=== PATIENT | female | born 1990 | race Two or more races ===

== ENCOUNTER 2020-08-12 09:27 | Emergency (ER) | payer MEDICAID ==
[~2020-08-12] VITALS: Ht 170.2 cm; Wt 94.8 kg
[2020-08-12] MEDS ORDERED: SODIUM CHLORIDE 0.9% 1,000 ML IVB ONE (10:00)
[2020-08-12 10:26] LABS: Basophils # (auto) 0 10 ^3/uL (0-0.2); Basophils % (auto) 0.7 % (0.0-2.0); Eosinophils # (auto) 0.1 10 ^3/uL (0-0.8); Eosinophils % (auto) 1.3 % (0.0-7.0); Hemoglobin 11.9 g/dL (12.2-16.2); Lymphocytes # (auto) 1.3 10 ^3/uL (0.4-5.4); Lymphocytes % (auto) 30.7 % (10.0-50.0); Mean Corpuscular Hemoglobin 29.1 pg (28.0-32.0); Mean Corpuscular Volume 85.7 fL (80.0-100.0); Monocytes # (auto) 0.3 10 ^3/uL (0-1.3); Monocytes % (auto) 5.8 % (0.0-12.0); Neutrophils # (auto) 2.7 10 ^3/uL (1.6-8.6); Neutrophils % (auto) 61.5 % (37.0-80.0); Nucleated Red Blood Cells % 0.1 %; Platelet Count (auto) 133 10^3/uL (140-450); Red Blood Cells 4.08 10^6/uL (4.0-5.20); Red Cell Distribution Width 14.5 % (11.8-14.3); White Blood Cell 4.3 10^3/uL (4.4-10.8)
[2020-08-12 10:59] LABS: Albumin 3.7 g/dL (3.4-5.0); Calcium 8.8 mg/dL (8.5-10.1); Potassium 3.9 mmol/L (3.5-5.1)
[2020-08-12 11:02] LABS: BUN/Creatinine Ratio 14.8; Bilirubin, Total 0.5 mg/dL (0.2-1.0); Total Protein 6.8 g/dL (6.4-8.2)
[2020-08-12 11:49] LABS: Urine Bacteria NONE SEEN /hpf (None Seen); Urine Blood Negative /uL (Negative); Urine Specific Gravity 1.018 (1.001-1.035); Urine WBC 17 /hpf (0 - 5)
[2020-08-12 12:12] VITALS: BP 162/74
== END 2020-08-12 12:32 | disposition home or self-care (01) ==
LOC: ER 09:27 → EDBD 09:27 → ER 12:32
DX: N39.0 Urinary tract infection, site not specified (principal); Z90.49 Acquired absence of other specified parts of digestive tract
CPT/HCPCS: 36415; 74176; 80053; 81001; 83690; 85025; 96360; 96361; 99284; J7030

== ENCOUNTER 2020-09-12 20:24 | Emergency (ER) | payer MEDICAID ==
[~2020-09-12] VITALS: Ht 170.2 cm; Wt 93.4 kg
[2020-09-12 21:54] LABS: Hematocrit 37.1 % (36.0-46.0); Hemoglobin 12.5 g/dL (12.2-16.2); Mean Corpuscular Hemoglobin 28.8 pg (28.0-32.0); Mean Corpuscular Hgb Conc. 33.7 g/dL (32.0-36.0); Mean Corpuscular Volume 85.6 fL (80.0-100.0); Red Blood Cells 4.34 10^6/uL (4.0-5.20); White Blood Cell 4.4 10^3/uL (4.4-10.8)
[2020-09-12 21:56] LABS: Urine Bacteria NONE SEEN /hpf (None Seen); Urine Blood Negative /uL (Negative); Urine Specific Gravity 1.003 (1.001-1.035); Urine WBC <1 /hpf (0 - 5)
[2020-09-12 21:58] LABS: Band Neutrophils % (manual) 0
[2020-09-12 22:00] LABS: Basophils % (manual) 0 (0.0-2.0); Blast Cells 0; Metamyelocytes % 0; Myelocytes % 0; Promyelocytes % 0
[2020-09-12 22:14] LABS: Albumin 3.7 g/dL (3.4-5.0); Calcium 8.4 mg/dL (8.5-10.1); Potassium 3.8 mmol/L (3.5-5.1)
[2020-09-12 22:26] VITALS: BP 101/57
[2020-09-12 22:26] LABS: Bilirubin, Total 0.6 mg/dL (0.2-1.0); Total Protein 7.2 g/dL (6.4-8.2)
[2020-09-12 22:41] LABS: Eosinophils % (manual) 3 (0-7); Lymphocytes % (manual) 47 (10.0-50.0); Monocytes % (manual) 12 (0-12); Reactive Lymphocytes 5
[2020-09-12] MEDS ORDERED: traMADol HCL 50 MG TAB PO ONE (23:30)
[2020-09-12] MEDS ORDERED: SODIUM CHLORIDE 0.9% 1,000 ML IV ONE (23:30)
== END 2020-09-13 01:01 | disposition home or self-care (01) ==
LOC: ER 20:24
DX: R10.11 Right upper quadrant pain (principal); Z90.49 Acquired absence of other specified parts of digestive tract
CPT/HCPCS: 36415; 74176; 80053; 81001; 82962; 83690; 84702; 85007; 85027; 96360; 99284; J7030

== ENCOUNTER 2021-07-17 19:26 | Emergency (ER) | payer MEDICAID, OTHER ==
[~2021-07-17] VITALS: Ht 170.2 cm; Wt 100.7 kg
[2021-07-17 20:22] LABS: Basophils # (auto) 0 10 ^3/uL (0-0.2); Basophils % (auto) 0.4 % (0.0-2.0); Eosinophils # (auto) 0 10 ^3/uL (0-0.8); Eosinophils % (auto) 0.4 % (0.0-7.0); Hematocrit 35.1 % (36.0-46.0); Hemoglobin 12.3 g/dL (12.2-16.2); Lymphocytes % (auto) 26.9 % (10.0-50.0); Mean Corpuscular Hemoglobin 29.2 pg (28.0-32.0); Mean Corpuscular Volume 83.3 fL (80.0-100.0); Monocytes # (auto) 0.3 10 ^3/uL (0-1.3); Monocytes % (auto) 4.2 % (0.0-12.0); Neutrophils % (auto) 68.1 % (37.0-80.0); Nucleated Red Blood Cells % 0.1 %; Red Blood Cells 4.21 10^6/uL (4.0-5.20); Red Cell Distribution Width 13.5 % (11.8-14.3); White Blood Cell 7.3 10^3/uL (4.4-10.8)
[2021-07-17 20:35] LABS: Albumin 3.2 g/dL (3.4-5.0); Calcium 8.8 mg/dL (8.5-10.1); Potassium 3.6 mmol/L (3.5-5.1)
[2021-07-17 20:39] LABS: BUN/Creatinine Ratio 12.5; Bilirubin, Total 0.2 mg/dL (0.2-1.0); Total Protein 7.2 g/dL (6.4-8.2)
[2021-07-17 21:02] LABS: Urine Amorphous Crystal MOD /hpf (None Seen); Urine Bacteria FEW /hpf (None Seen); Urine Blood Negative /uL (Negative); Urine Mucus FEW (None Seen); Urine Specific Gravity 1.014 (1.001-1.035); Urine WBC <1 /hpf (0 - 5)
[2021-07-18 01:36] VITALS: BP 110/70
[2021-07-18] MEDS ORDERED: NITR-87 PO (01:57)
== END 2021-07-18 02:39 | disposition home or self-care (01) ==
LOC: ER 19:26
DX: O20.0 Threatened abortion (principal); Z90.49 Acquired absence of other specified parts of digestive tract; Z3A.17 17 weeks gestation of pregnancy
CPT/HCPCS: 36415; 76805; 80053; 81001; 81025; 84702; 85025; 93005

== ENCOUNTER 2021-09-29 21:54 | Observation (INO) | payer MEDICAID ==
[~2021-09-29 21:54] MED LIST: NITR-87 PO
[2021-09-30 02:39] LABS: Urine Amorphous Crystal FEW /hpf (None Seen); Urine Bacteria FEW /hpf (None Seen); Urine Blood Negative /uL (Negative); Urine Mucus FEW (None Seen); Urine Specific Gravity 1.016 (1.001-1.035); Urine WBC 2 /hpf (0 - 5)
[2021-09-30] MEDS ORDERED: LACTATED RINGER'S 1,000 ML IV ONE (04:00)
== END 2021-09-30 02:40 | disposition home or self-care (01) ==
LOC: LDRP 21:54
PROVIDERS: ADMIT Obstetrics & Gynecology; ATTEND Obstetrics & Gynecology
DX: O26.893 Other specified pregnancy related conditions, third trimester (principal); R19.7 Diarrhea, unspecified; R10.9 Unspecified abdominal pain; O99.333 Smoking (tobacco) complicating pregnancy, third trimester; F17.200 Nicotine dependence, unspecified, uncomplicated; Z3A.28 28 weeks gestation of pregnancy
CPT/HCPCS: 59025; 81001; 81002; 94762; 96360; G0378

== ENCOUNTER 2022-07-11 21:15 | Emergency (ER) | payer MEDICAID, OTHER ==
[~2022-07-11] VITALS: Ht 172.7 cm; Wt 116.4 kg
[2022-07-12 00:47] VITALS: BP 112/73
[2022-07-12] MEDS ORDERED: AMOX-277 PO (00:53)
[2022-07-12] MEDS ORDERED: PRED20TA2 PO (00:53)
[2022-07-12] MEDS ORDERED: ACET-1158 PO (00:53)
== END 2022-07-12 01:00 | disposition home or self-care (01) ==
LOC: ER 21:16
DX: J06.9 Acute upper respiratory infection, unspecified (principal); Z20.822 Contact with and (suspected) exposure to COVID-19; Z90.49 Acquired absence of other specified parts of digestive tract
CPT/HCPCS: 36415; 87426; 87804

== ENCOUNTER 2022-07-12 17:26 | Emergency (ER) | payer MEDICAID, OTHER ==
[~2022-07-12] VITALS: Ht 170.2 cm; Wt 114.0 kg
[~2022-07-12 17:26] MED LIST changes: +ACET-1158 PO; +AMOX-277 PO; +PRED20TA2 PO
[2022-07-12 22:03] VITALS: BP 114/76
== END 2022-07-12 22:16 | disposition home or self-care (01) ==
LOC: ER 17:26
DX: S50.02XA Contusion of left elbow, initial encounter (principal); W22.8XXA Striking against or struck by other objects, initial encounter; Y93.89 Activity, other specified; Y92.89 Other specified places as the place of occurrence of the external cause; Y99.8 Other external cause status
CPT/HCPCS: 73080

== ENCOUNTER 2022-08-03 09:28 | Emergency (ER) | payer MEDICAID, OTHER ==
[~2022-08-03] VITALS: Ht 170.2 cm; Wt 117.2 kg
[2022-08-03] MEDS ORDERED: ONDANSETRON ODT 4 MG TAB PO ONE (10:30)
[2022-08-03] MEDS ORDERED: ACETAMINOPHEN 500 MG TAB PO ONE (10:30)
[2022-08-03] MEDS ORDERED: SODIUM CHLORIDE 0.9% 1,000 ML IV ONE (10:30)
[2022-08-03 10:52] LABS: Urine Bacteria NONE SEEN /hpf (None Seen); Urine Blood TRACE /uL (Negative); Urine Mucus FEW (None Seen); Urine Specific Gravity 1.029 (1.001-1.035); Urine WBC 8 /hpf (0 - 5)
[2022-08-03 11:15] LABS: Basophils # (auto) 0 10 ^3/uL (0-0.2); Basophils % (auto) 0.6 % (0.0-2.0); Eosinophils # (auto) 0 10 ^3/uL (0-0.8); Eosinophils % (auto) 0.8 % (0.0-7.0); Hemoglobin 12.8 g/dL (12.2-16.2); Lymphocytes # (auto) 1.8 10 ^3/uL (0.4-5.4); Lymphocytes % (auto) 30.8 % (10.0-50.0); Mean Corpuscular Hemoglobin 27.6 pg (28.0-32.0); Mean Corpuscular Hgb Conc. 32.9 g/dL (32.0-36.0); Mean Corpuscular Volume 83.8 fL (80.0-100.0); Monocytes # (auto) 0.5 10 ^3/uL (0-1.3); Monocytes % (auto) 7.7 % (0.0-12.0); Neutrophils # (auto) 3.6 10 ^3/uL (1.6-8.6); Neutrophils % (auto) 60.1 % (37.0-80.0); Nucleated Red Blood Cells % 0.1 %; Red Blood Cells 4.65 10^6/uL (4.0-5.20); Red Cell Distribution Width 13.4 % (11.8-14.3); White Blood Cell 5.9 10^3/uL (4.4-10.8)
[2022-08-03 11:35] LABS: Albumin 3.4 g/dL (3.4-5.0); Calcium 8.1 mg/dL (8.5-10.1); Potassium 3.6 mmol/L (3.5-5.1)
[2022-08-03 11:39] LABS: BUN/Creatinine Ratio 22.2 (10.0-20.0); Bilirubin, Total 0.5 mg/dL (0.2-1.0); Total Protein 6.7 g/dL (6.4-8.2)
[2022-08-03 11:44] VITALS: BP 132/67
[2022-08-03] MEDS ORDERED: ACET1CAP14 PO (12:00)
[2022-08-03] MEDS ORDERED: ONDA-144 PO (12:00)
[2022-08-03] MEDS ORDERED: CEPH-510 PO (12:00)
[2022-08-03] MEDS ORDERED: LIDOCAINE 1% HCL (LOCAL ANESTH.) INJ 20ML MDV ID ONE (12:15)
[2022-08-03] MEDS ORDERED: cefTRIAXone SOD 1,000 MG VL IM ONE (12:15)
== END 2022-08-03 12:52 | disposition home or self-care (01) ==
LOC: ER 09:28
DX: N39.0 Urinary tract infection, site not specified (principal); A08.4 Viral intestinal infection, unspecified; R10.2 Pelvic and perineal pain; Z79.899 Other long term (current) drug therapy; Z88.6 Allergy status to analgesic agent; Z88.1 Allergy status to other antibiotic agents; Z90.49 Acquired absence of other specified parts of digestive tract
CPT/HCPCS: 36415; 80053; 81001; 83690; 84702; 85025; 96360; 96361; 96372; 99283; J2001; J7030; Q0162; J0696

== ENCOUNTER 2022-11-19 12:51 | Emergency (ER) | payer MEDICAID, OTHER ==
[~2022-11-19] VITALS: Ht 170.2 cm; Wt 116.6 kg
[~2022-11-19 12:51] MED LIST changes: -ACET-1158 PO; +ACET1CAP14 PO; +ACET500T58 PO; -AMOX-277 PO; +AMOX875T4 PO; +CEPH-510 PO; +ONDA-144 PO
[2022-11-19] MEDS ORDERED: PRED20TA2 PO (15:46)
[2022-11-19] MEDS ORDERED: AUG875T PO (15:46)
[2022-11-19 15:48] VITALS: BP 119/85
== END 2022-11-19 16:16 | disposition home or self-care (01) ==
LOC: ER 12:51
DX: H66.92 Otitis media, unspecified, left ear (principal); J03.90 Acute tonsillitis, unspecified; Z90.49 Acquired absence of other specified parts of digestive tract

== ENCOUNTER 2022-12-07 08:05 | Emergency (ER) | payer OTHER ==
[~2022-12-07] VITALS: Ht 172.7 cm; Wt 119.0 kg
[~2022-12-07 08:05] MED LIST changes: +AUG875T PO
[2022-12-07 08:24] VITALS: BP 114/58; PULSE 79; RESP 18; O2SAT 95
[2022-12-07 08:44] LABS: Basophils # (auto) 0 10 ^3/uL (0-0.2); Basophils % (auto) 0.7 % (0.0-2.0); Eosinophils # (auto) 0.2 10 ^3/uL (0-0.8); Eosinophils % (auto) 2.8 % (0.0-7.0); Hematocrit 36.1 % (36.0-46.0); Hemoglobin 11.9 g/dL (12.2-16.2); Lymphocytes # (auto) 1.6 10 ^3/uL (0.4-5.4); Lymphocytes % (auto) 29.8 % (10.0-50.0); Mean Corpuscular Volume 84.9 fL (80.0-100.0); Monocytes # (auto) 0.4 10 ^3/uL (0-1.3); Monocytes % (auto) 7.8 % (0.0-12.0); Neutrophils # (auto) 3.2 10 ^3/uL (1.6-8.6); Neutrophils % (auto) 58.9 % (37.0-80.0); Nucleated Red Blood Cells % 0.1 %; Red Blood Cells 4.26 10^6/uL (4.0-5.20); Red Cell Distribution Width 13.8 % (11.8-14.3); White Blood Cell 5.5 10^3/uL (4.4-10.8)
[2022-12-07 09:07] LABS: Albumin 3.3 g/dL (3.4-5.0); Calcium 8.7 mg/dL (8.5-10.1); Potassium 3.8 mmol/L (3.5-5.1)
[2022-12-07 09:11] LABS: BUN/Creatinine Ratio 17.2 (10.0-20.0); Bilirubin, Total 0.2 mg/dL (0.2-1.0); Total Protein 6.2 g/dL (6.4-8.2)
== END 2022-12-07 16:42 | disposition home or self-care (01) ==
LOC: ER 08:05
DX: O26.891 Other specified pregnancy related conditions, first trimester (principal); Z79.899 Other long term (current) drug therapy; Z90.49 Acquired absence of other specified parts of digestive tract
CPT/HCPCS: 36415; 76801; 76817; 80053; 83690; 84702; 85025

== ENCOUNTER 2023-01-20 17:22 | Emergency (ER) | payer OTHER ==
[~2023-01-20] VITALS: Ht 170.2 cm; Wt 114.1 kg
[2023-01-20 18:54] LABS: Urine Bacteria MANY /hpf (None Seen); Urine Blood Negative /uL (Negative); Urine Budding Yeast FEW /hpf (None Seen); Urine Clarity HAZY (Clear); Urine Color Yellow (Yellow); Urine Mucus FEW (None Seen); Urine Protein, UAD Negative (Negative); Urine Specific Gravity 1.021 (1.001-1.035); Urine Urobilinogen Normal (Negative); Urine WBC 28 /hpf (0 - 5); Urine pH 6.5 (5.0-8.0)
[2023-01-20 18:59] VITALS: BP 114/77; PULSE 75; RESP 18; TEMP 97.3; O2SAT 97
[2023-01-20 21:09] LABS: Rapid Strep A Screen-Throat Negative
[2023-01-20] MEDS ORDERED: TRIA0.02 TOP (21:32)
[2023-01-20] MEDS ORDERED: NITR-87 PO (21:32)
== END 2023-01-20 21:43 | disposition home or self-care (01) ==
LOC: ER 17:22
DX: O23.41 Unspecified infection of urinary tract in pregnancy, first trimester (principal); R10.2 Pelvic and perineal pain; N39.0 Urinary tract infection, site not specified; O99.711 Diseases of the skin and subcutaneous tissue complicating pregnancy, first trimester; L30.8 Other specified dermatitis; Z79.2 Long term (current) use of antibiotics; Z79.899 Other long term (current) drug therapy; Z3A.00 Weeks of gestation of pregnancy not specified
CPT/HCPCS: 36415; 81001; 81025; 84702; 87070; 87880

== ENCOUNTER 2023-03-10 07:52 | Emergency (ER) | payer MEDICAID, OTHER ==
[~2023-03-10] VITALS: Ht 170.2 cm; Wt 113.2 kg
[~2023-03-10 07:52] MED LIST changes: +TRIA0.02 TOP
[2023-03-10 08:00] VITALS: BP 118/76; PULSE 72; RESP 18; TEMP 97.1; O2SAT 100
[2023-03-10 09:07] LABS: Basophils # (auto) 0 10 ^3/uL (0-0.2); Basophils % (auto) 0.7 % (0.0-2.0); Eosinophils # (auto) 0.1 10 ^3/uL (0-0.8); Eosinophils % (auto) 1.8 % (0.0-7.0); Hematocrit 37.2 % (36.0-46.0); Hemoglobin 12.2 g/dL (12.2-16.2); Lymphocytes # (auto) 1.8 10 ^3/uL (0.4-5.4); Lymphocytes % (auto) 36.5 % (10.0-50.0); Mean Corpuscular Hemoglobin 27.8 pg (28.0-32.0); Mean Corpuscular Hgb Conc. 32.7 g/dL (32.0-36.0); Monocytes # (auto) 0.3 10 ^3/uL (0-1.3); Monocytes % (auto) 5.5 % (0.0-12.0); Neutrophils # (auto) 2.7 10 ^3/uL (1.6-8.6); Neutrophils % (auto) 55.5 % (37.0-80.0); Nucleated Red Blood Cells % 0.1 %; Red Blood Cells 4.37 10^6/uL (4.0-5.20); White Blood Cell 4.9 10^3/uL (4.4-10.8)
[2023-03-10 09:17] LABS: Chloride 106 mmol/L (98-107); Sodium 138 mmol/L (136-145)
[2023-03-10 09:18] LABS: Anion Gap 6 (5-15); Carbon Dioxide 26 mmol/L (20-30)
[2023-03-10 09:23] LABS: BUN/Creatinine Ratio 9.2 (10.0-20.0); Blood Urea Nitrogen 6 mg/dL (9-23); Glucose 103 mg/dL (74-106)
[2023-03-10 09:31] LABS: Urine Amorphous Crystal FEW /hpf (None Seen); Urine Bacteria NONE SEEN /hpf (None Seen); Urine Blood 3+ /uL (Negative); Urine Budding Yeast MANY /hpf (None Seen); Urine Clarity CLOUDY (Clear); Urine Color Yellow (Yellow); Urine Protein, UAD TRACE (Negative); Urine Specific Gravity 1.017 (1.001-1.035); Urine Urobilinogen Normal (Negative); Urine WBC 31 /hpf (0 - 5)
== END 2023-03-10 11:46 | disposition left against medical advice (07) ==
LOC: ER 07:52
DX: O20.0 Threatened abortion (principal); Z32.01 Encounter for pregnancy test, result positive; Z90.49 Acquired absence of other specified parts of digestive tract; Z79.2 Long term (current) use of antibiotics; Z79.899 Other long term (current) drug therapy; Z3A.00 Weeks of gestation of pregnancy not specified
CPT/HCPCS: 36415; 80048; 81001; 81025; 84702; 85025

== ENCOUNTER → 2023-04-15 | Emergency (ER) | payer OTHER | END | disposition left against medical advice (07) | LOC: ER 14:02 | DX: R53.1 Weakness (principal); Z53.21 Procedure and treatment not carried out due to patient leaving prior to being seen by health care provider ==

== ENCOUNTER 2023-06-24 07:45 | Emergency (ER) | payer MEDICAID, OTHER ==
[~2023-06-24] VITALS: Ht 172.7 cm; Wt 113.5 kg
[2023-06-24 08:25] LABS: Urine Bacteria NONE SEEN /hpf (None Seen); Urine Blood Negative /uL (Negative); Urine Clarity HAZY (Clear); Urine Color Yellow (Yellow); Urine Mucus FEW (None Seen); Urine Protein, UAD Negative (Negative); Urine Specific Gravity 1.021 (1.001-1.035); Urine Urobilinogen Normal (Negative); Urine WBC 6 /hpf (0 - 5)
[2023-06-24 08:26] VITALS: BP 100/56; PULSE 82; RESP 22; O2SAT 100
[2023-06-24] MEDS ORDERED: PROM1SOL4 PO (08:35)
[2023-06-24] MEDS ORDERED: IBUP-1456 PO (08:35)
[2023-06-24] MEDS ORDERED: BACDST PO (08:35)
[2023-06-24 08:52] VITALS: TEMP 97.6
[2023-06-24] MEDS: ACETAMINOPHEN 500 MG TAB PO ONE (08:52)
[2023-06-24] MEDS: cefTRIAXone SOD 1,000 MG VL IM ONE (08:53)
== END 2023-06-24 08:59 | disposition home or self-care (01) ==
LOC: ER 07:45
DX: J03.90 Acute tonsillitis, unspecified (principal); N39.0 Urinary tract infection, site not specified; Z90.49 Acquired absence of other specified parts of digestive tract
CPT/HCPCS: 71045; 81001; 96372; 99284; J0696

== ENCOUNTER 2023-08-09 18:08 | Emergency (ER) | payer MEDICAID, OTHER ==
[~2023-08-09] VITALS: Ht 170.2 cm; Wt 114.4 kg
[~2023-08-09 18:08] MED LIST changes: +BACDST PO; +IBUP-1456 PO; +PROM1SOL4 PO
[2023-08-09 20:54] LABS: COVID19 ANTIGEN SOFIA FIA NEGATIVE (NEGATIVE); Rapid Influenza A Negative (Negative); Rapid Influenza B Negative (Negative)
[2023-08-09 21:48] LABS: Urine Bacteria NONE SEEN /hpf (None Seen); Urine Blood TRACE /uL (Negative); Urine Clarity HAZY (Clear); Urine Color Colorless (Yellow); Urine Mucus FEW (None Seen); Urine Protein, UAD Negative (Negative); Urine Specific Gravity 1.019 (1.001-1.035); Urine Urobilinogen Normal (Negative); Urine WBC 4 /hpf (0 - 5)
[2023-08-09] MEDS ORDERED: CIPR500T4 PO (21:56)
[2023-08-09] MEDS ORDERED: ZOFR4T PO (21:56)
[2023-08-09] MEDS ORDERED: ACET500T58 PO (21:56)
[2023-08-09 22:27] VITALS: BP 129/72; PULSE 86; RESP 18; TEMP 98; O2SAT 95
== END 2023-08-09 22:27 | disposition home or self-care (01) ==
LOC: ER 18:08
DX: N39.0 Urinary tract infection, site not specified (principal); K52.9 Noninfective gastroenteritis and colitis, unspecified; Z20.822 Contact with and (suspected) exposure to COVID-19; Z32.02 Encounter for pregnancy test, result negative; Z90.49 Acquired absence of other specified parts of digestive tract
CPT/HCPCS: 36415; 81001; 81025; 87426; 87804

== ENCOUNTER 2023-08-14 17:28 | Emergency (ER) | payer MEDICAID ==
[~2023-08-14] VITALS: Ht 170.2 cm; Wt 116.3 kg
[~2023-08-14 17:28] MED LIST changes: +CIPR500T4 PO; +ZOFR4T PO
[2023-08-14 18:00] VITALS: PULSE 68; RESP 20; O2SAT 99
[2023-08-14] MEDS ORDERED: HYDROcodone-ACET 5/325MG TAB ONE (18:02)
[2023-08-14] MEDS: HYDROcodone-ACET 5/325MG TAB PO ONE (18:03)
[2023-08-14 20:00] VITALS: PULSE 81; RESP 17; O2SAT 97
[2023-08-14] MEDS ORDERED: MORP15TA PO (20:51)
[2023-08-14] MEDS ORDERED: IBUP-1455 PO (20:51)
[2023-08-14] MEDS: MORPHINE SULFATE 4 MG/ML SYR/VIAL IV ONE (20:54)
[2023-08-14 21:01] VITALS: BP 102/64; PULSE 71; RESP 21; O2SAT 98
== END 2023-08-14 21:16 | disposition home or self-care (01) ==
LOC: ER 17:28
DX: S22.41XA Multiple fractures of ribs, right side, initial encounter for closed fracture (principal); M25.551 Pain in right hip; M79.621 Pain in right upper arm; R51.9 Headache, unspecified; R07.9 Chest pain, unspecified; Z90.49 Acquired absence of other specified parts of digestive tract; V80.010A Animal-rider injured by fall from or being thrown from horse in noncollision accident, initial encounter; Y93.89 Activity, other specified; Y92.89 Other specified places as the place of occurrence of the external cause; Y99.8 Other external cause status
CPT/HCPCS: 70470; 70492; 71045; 72100; 73060; 73080; 73700; 74177; 96374; 99285; Q9967

== ENCOUNTER 2023-08-16 21:21 | Emergency (ER) | payer MEDICAID ==
[~2023-08-16 21:21] MED LIST changes: +IBUP-1455 PO; +MORP15TA PO
== END 2023-08-16 21:33 | disposition left against medical advice (07) ==
LOC: ER 21:21
DX: R06.02 Shortness of breath (principal); Z53.21 Procedure and treatment not carried out due to patient leaving prior to being seen by health care provider

== ENCOUNTER 2023-11-25 15:32 | Emergency (ER) | payer MEDICAID ==
[~2023-11-25] VITALS: Ht 172.7 cm; Wt 115.6 kg
[2023-11-25 16:15] VITALS: RESP 14; TEMP 97.8; O2SAT 96
[2023-11-25] MEDS: ONDANSETRON ODT 4 MG TAB PO ONE (16:18)
[2023-11-25] MEDS: KETOROLAC TROMETH 60MG/2ML VIAL IM ONE (16:19)
[2023-11-25 16:26] LABS: Basophils # (auto) 0.1 10 ^3/uL (0-0.2); Basophils % (auto) 0.9 % (0.0-2.0); Eosinophils # (auto) 0.1 10 ^3/uL (0-0.8); Eosinophils % (auto) 1.6 % (0.0-7.0); Hematocrit 38.1 % (36.0-46.0); Hemoglobin 13.1 g/dL (12.2-16.2); Lymphocytes # (auto) 2.1 10 ^3/uL (0.4-5.4); Lymphocytes % (auto) 32.3 % (10.0-50.0); Mean Corpuscular Hemoglobin 28.3 pg (28.0-32.0); Mean Corpuscular Hgb Conc. 34.4 g/dL (32.0-36.0); Mean Corpuscular Volume 82.2 fL (80.0-100.0); Monocytes # (auto) 0.4 10 ^3/uL (0-1.3); Monocytes % (auto) 6.2 % (0.0-12.0); Neutrophils # (auto) 3.9 10 ^3/uL (1.6-8.6); Nucleated Red Blood Cells % 0.2 %; Red Blood Cells 4.64 10^6/uL (4.0-5.20); White Blood Cell 6.6 10^3/uL (4.4-10.8)
[2023-11-25 16:38] LABS: Chloride 109 mmol/L (98-107); Potassium 3.8 mmol/L (3.5-5.1); Sodium 139 mmol/L (136-145)
[2023-11-25 16:39] LABS: Anion Gap 6 (5-15); Calcium 9.1 mg/dL (8.7-10.4); Carbon Dioxide 24 mmol/L (20-30)
[2023-11-25 16:44] LABS: Blood Urea Nitrogen 7 mg/dL (9-23); Glucose 89 mg/dL (74-106); Lipase 35 U/L (12-53)
[2023-11-25 17:44] LABS: Urine Bacteria FEW /hpf (None Seen); Urine Blood TRACE /uL (Negative); Urine Clarity Turbid (Clear); Urine Color Yellow (Yellow); Urine Mucus FEW (None Seen); Urine Protein, UAD TRACE (Negative); Urine Specific Gravity 1.025 (1.001-1.035); Urine Urobilinogen Normal (Negative); Urine WBC 5 /hpf (0 - 5)
[2023-11-25 18:00] VITALS: BP 122/64; PULSE 87; RESP 16; O2SAT 99
[2023-11-25] MEDS ORDERED: IBUP-1455 PO (18:09)
[2023-11-25] MEDS ORDERED: ACE3T PO (18:09)
[2023-11-25] MEDS ORDERED: BACDST PO (18:09)
[2023-11-25] MEDS: CIPROFLOXACIN HCL 500 MG TAB PO ONE (18:22)
== END 2023-11-25 18:22 | disposition home or self-care (01) ==
LOC: ER 15:32
DX: N39.0 Urinary tract infection, site not specified (principal); M79.18 Myalgia, other site; J02.9 Acute pharyngitis, unspecified; Z90.49 Acquired absence of other specified parts of digestive tract; Z79.899 Other long term (current) drug therapy
CPT/HCPCS: 36415; 80048; 81001; 81025; 83690; 83880; 85025; 96372; 99283; J1885; Q0162

== ENCOUNTER 2023-12-17 10:46 | Emergency (ER) | payer MEDICAID ==
[~2023-12-17] VITALS: Ht 172.7 cm; Wt 114.8 kg
[~2023-12-17 10:46] MED LIST changes: +ACE3T PO
[2023-12-17 12:01] LABS: Urine Bacteria None Seen /hpf (None Seen)
[2023-12-17 12:13] LABS: Basophils # (auto) 0 10 ^3/uL (0-0.2); Basophils % (auto) 0.2 % (0.0-2.0); Eosinophils # (auto) 0 10 ^3/uL (0-0.8); Eosinophils % (auto) 0.2 % (0.0-7.0); Hematocrit 38.2 % (36.0-46.0); Lymphocytes # (auto) 0.6 10 ^3/uL (0.4-5.4); Lymphocytes % (auto) 8.8 % (10.0-50.0); Mean Corpuscular Hemoglobin 28.3 pg (28.0-32.0); Mean Corpuscular Hgb Conc. 34.1 g/dL (32.0-36.0); Monocytes # (auto) 0.2 10 ^3/uL (0-1.3); Monocytes % (auto) 3.4 % (0.0-12.0); Neutrophils # (auto) 5.9 10 ^3/uL (1.6-8.6); Neutrophils % (auto) 87.4 % (37.0-80.0); Red Cell Distribution Width 15.7 % (11.8-14.3); White Blood Cell 6.7 10^3/uL (4.4-10.8)
[2023-12-17 12:14] LABS: Urine Blood Negative /uL (Negative); Urine Clarity Turbid (Clear); Urine Color Yellow (Yellow); Urine Mucus FEW (None Seen); Urine Protein, UAD 1+ (Negative); Urine Specific Gravity 1.037 (1.001-1.035); Urine Urobilinogen 6 mg/dL (Negative); Urine WBC 3 /hpf (0 - 5)
[2023-12-17 12:20] LABS: Chloride 107 mmol/L (98-107); Potassium 3.7 mmol/L (3.5-5.1); Sodium 138 mmol/L (136-145)
[2023-12-17 12:21] LABS: Anion Gap 5 (5-15); Calcium 8.6 mg/dL (8.7-10.4); Carbon Dioxide 26 mmol/L (20-30)
[2023-12-17 12:26] LABS: BUN/Creatinine Ratio 9.7 (10.0-20.0); Blood Urea Nitrogen 7 mg/dL (9-23); Glucose 96 mg/dL (74-106)
[2023-12-17 15:56] VITALS: PULSE 84; RESP 16; O2SAT 97
[2023-12-17] MEDS: PANTOPRAZOLE 40 MG/10 ML VIAL INJ IV ONE (16:35)
[2023-12-17 16:43] LABS: Triglycerides 90 mg/dL (< 150)
[2023-12-17 16:44] LABS: LDL Cholesterol 93 mg/dL (< 100)
[2023-12-17 16:45] LABS: Cholesterol 150 mg/dL (< 200); HDL Cholesterol 44 mg/dL (40-59)
[2023-12-17] MEDS: KETOROLAC TROMETH 30 MG/ML 1ML VIAL IV ONE (16:51)
[2023-12-17 16:52] LABS: Lipase 35 U/L (12-53)
[2023-12-17] MEDS: SODIUM CHLORIDE 0.9% 1,000 ML IV SCH (16:52)
[2023-12-17] MEDS: metroNIDAZOLE 500MG/100ML 100 ML IV ONE (18:03)
[2023-12-17 18:12] VITALS: BP 114/63; PULSE 66; RESP 20; TEMP 98.3; O2SAT 100
[2023-12-17] MEDS: ACETAMINOPHEN 325 MG TAB PO PRN (21:01)
[2023-12-17] MEDS: ONDANSETRON HCL 4 MG/2 ML VIAL IV PRN (21:01)
[2023-12-17] MEDS: metroNIDAZOLE 500MG/100ML 100 ML IV SCH (21:01)
[2023-12-17] MEDS: KETOROLAC TROMETH 30 MG/ML 1ML VIAL IV PRN (21:02)
[2023-12-18] MEDS ORDERED: PANTOPRAZOLE 40 MG/10 ML VIAL INJ IV SCH (10:00)
== END 2023-12-17 22:34 | disposition left against medical advice (07) ==
LOC: ER 10:46 → OVERFLOW 16:38 → UNDOADMIN 16:38 → ER 22:34
DX: A41.9 Sepsis, unspecified organism (principal); N39.0 Urinary tract infection, site not specified; Z98.890 Other specified postprocedural states; Z79.899 Other long term (current) drug therapy
CPT/HCPCS: 36415; 80048; 80061; 81001; 81025; 83690; 84443; 85025; 96361; 96365; 96366; 96375; 96376; 99284; J1885; J2405; J2470; J3490; J7030

== ENCOUNTER 2024-05-24 17:58 | Emergency (ER) | payer MEDICAID, OTHER ==
[~2024-05-24] VITALS: Ht 170.2 cm; Wt 116.7 kg
--- NOTE | 2024-05-24 19:49 | ED.PDOC ---
General HPI Comments This is a 33-year-old female presents to the ED chief complaint flu-like symptoms x4 days. Patient also presents with her 4 children with same symptoms in her mother with the same symptoms total of 6. Patient reports cough, congestion, and fevers. She also notes dysuria and burning with urination. She denies chest pain, difficulty breathing, shortness of breath, nausea, vomiting, diarrhea or flank pain Chief Complaint: Flu like Time Seen by MD: 18:22 Primary Care Provider: MIKAL Reviewed notes: Nurses Notes, Medications, Allergies Allergies: Coded Allergies: No Known Drug Allergy (Verified Allergy, Unknown, 08/12/20) Home Meds Active Scripts Acetaminophen (Acetaminophen) 500 Mg Tab, 500 MG PO Q4HP PRN, #30 TAB Prov:GERSONJEAN Compa PAC 04/14/24 Ibuprofen Micronized (Ibuprofen) 800 Mg Tab, 800 MG PO Q8HP PRN, #20 TAB Prov:GERSONJEAN Compa PAC 04/14/24 Acetaminophen W/ Codeine (Tylenol W/Cod #3) 1 Tab Tb, 1 TAB PO Q6HP PRN, #10 TAB Prov:GERSONJEAN Compa [facility] 11/25/23 Ibuprofen Micronized (Ibuprofen) 800 Mg Tab, 800 MG PO Q8HP PRN, #20 TAB Prov:GERSON,JEAN Compa [facility] 24 Sulfamethoxazole W/Trimethopri (Bactrim Ds Tablet) 1 Tab Tb, 1 TAB PO BID for 5 Days, #10 TAB Prov:GERSONJEAN Compa [facility] 11/25/23 Ibuprofen Micronized (Ibuprofen) 800 Mg Tab, 800 MG PO Q8HPRN PRN, #30 TAB Prov:MELISSA CASTILLO DO 08/14/23 Morphine Sulfate (Morphine Sulfate) 15 Mg Tab, 15 MG PO Q6HPRN PRN, #30 TAB Prov:MELISSA CASTILLO DO 08/14/23 Acetaminophen (Acetaminophen) 500 Mg Tab, 500 MG PO Q4HPRN, #30 TAB 0 Refills Prov:ARVIN FONG 08/09/23 Ondansetron Odt 4MG Tab (ZOFRAN PO) 4 Mg Tb, 4 MG PO Q8HPRN, #14 TAB 0 Refills ODT TAB-DISSOLVE IN MOUTH, THEN SWALLOW Prov:ARVIN FONG 08/09/23 Ciprofloxacin Hcl (Ciprofloxacin Hcl) 500 Mg Tab, 1 TAB PO BID for 7 Days, #14 TAB 0 Refills Prov:ARVIN FONG 08/09/23 Sulfamethoxazole W/Trimethopri (Bactrim Ds Tablet) 1 Tab Tb, 1 TAB PO BID for 7 Days, #14 TAB Prov:MARCELLE ANDUJAR 06/24/23 Promethazine-Dm (Promethazine Dm 6.25-15 mg/5Ml) 1 Yuliya Yuliya, 5 ML PO TID, #150 ML Prov:MARCELLE ANDUJAR 06/24/23 Ibuprofen (Ibuprofen) 800 Mg Tab, 1 TAB PO TID, #30 TAB Prov:MARCELLE ANDUJAR 06/24/23 Nitrofurantoin Monohydrate Mac (Macrobid) 100 Mg Cap, 100 MG PO BID for 5 Days, #10 CAP 0 Refills Prov:KARIN PINEDA 01/20/23 Triamcinolone Acetonide (Triamcinolone Acetonide) 0.025 % Cre, 1 APPLIC TOP BID PRN, #30 GRAMS 0 Refills Prov:KARIN PINEDA 01/20/23 Prednisone (Prednisone) 20 Mg Tab, 60 MG PO DAILY, #18 MG Prov:MARCELLE ANDUJAR 11/19/22 Amoxicillin & Pot Clavulanate (AUGMENTIN TABLET) 875 Mg Tb, 875 MG PO BID for 10 Days, #20 TAB Prov:MARCELLE ANDUJAR 11/19/22 Ondansetron (Zofran) 4 Mg Tab, 1 TAB PO Q6HR PRN, #12 TAB 0 Refills Prov:ALIYAH PAYTON 08/03/22 Acetaminophen (Tylenol) 325 Mg Cap, 325 MG PO Q4HPRN PRN, #30 CAP 0 Refills Take 1-2 caps po q4h prn for pain/fever (Do not exceed 3,000mg of acetaminophen in 24 hours) Prov:ALIYAH PAYTON 08/03/22 Cephalexin ( Keflex 500) 500 Mg Cap, 1 CAP PO QID for 7 Days, #28 CAP 0 Refills Prov:ALIYAH PAYTON 08/03/22 Prednisone (Prednisone) 20 Mg Tab, 20 MG PO BID for 5 Days, #10 TAB 0 Refills Prov:ARVIN FONG 07/12/22 Acetaminophen (Acetaminophen) 500 Mg Tab, 500 MG PO QIDP, #30 TAB 0 Refills Prov:AJITARVIN LICEA 07/12/22 Amoxicillin & Pot Clavulanate (Amoxicillin/Potassium Cla) 875 Mg Tab, 1 TAB PO BID for 7 Days, #14 TAB 0 Refills Prov:ARVIN FONG 07/12/22 Nitrofurantoin Monohydrate Mac (Macrobid) 100 Mg Cap, 100 MG PO BID for 7 Days, #14 CAP Prov:JONN REBOLLEDO MD 07/18/21 Mode of Arrival: Ambulatory Past Medical History PAST MEDICAL HISTORY: Denies Surgical History: 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 Family History Family History: Unknown Social History Smoker: Non-Smoker Alcohol: Denies ETOH Use Drugs: Denies Drug Use Lives In: Home Constitutional: reports: fever; denies: chills, diaphoresis, fatigue, malaise, sweats, weakness, others EENTM: reports: nasal discharge; denies: blurred vision, double vision, ear bleeding, ear discharge, ear drainage, ear pain, ear ringing, eye pain, eye redness, hearing loss, mouth pain, mouth swelling, nose bleeding, nose congestion, nose pain, photophobia, tearing, throat pain, throat swelling, voice changes, others Respiratory: reports: cough; denies: hemoptysis, orthopnea, SOB at rest, shortness of breath, SOB with excertion, stridor, wheezing, others Cardiovascular: denies: chest pain, dizzy spells, diaphoresis, Dyspnea on exertion, edema, irregular heart beat, left arm pain, lightheadedness, palpitations, PND, syncope, others Gastrointestinal: denies: abdomen distended, abdominal pain, blood streaked bowels, constipated, diarrhea, dysphagia, difficulty swallowing, hematemesis, melena, nausea, poor appetite, poor fluid intake, rectal bleeding, rectal pain, vomiting, others Genitourinary: denies: abnormal vagina bleeding, burning, dyspareunia, dysuria, flank pain, frequency, hematuria, incontinence, pain, , vagina discharge, urgency, others Neurological: denies: dizziness, fainting, headache, left sided numbness, left sided weakness, numbness, paresthesia, pre-existing deficit, right sided numbness, right sided weakness, seizure, speech problems, tingling, tremors, weakness, others Musculoskeletal: denies: back pain, gout, joint pain, joint swelling, muscle pain, muscle stiffness, neck pain, others Integumetry: denies: bruises, change in color, change in hair/nails, dryness, laceration, lesions, lumps, rash, wounds, others Allergic/Immunocompromised: denies: Difficulty Healing, Frequent Infections, H marito, Itching, others Hematologic/Lymphatic: denies: anemia, blood clots, easy bleeding, easy bruising, swollen glands, others Endocrine: denies: excessive hunger, excessive sweating, excessive thirst, excessive urination, flushing, intolerance to cold, intolerance to heat, unexplained weight gain, unexplained weight loss, others Psychiatric: denies: anxiety, bipolar disorder, depression, hopeless, panic disorder, schizophrenia, sleepless, suicidal, others Physical Exam General Appearance: No Apparent Distress, Normal HEENT: Pharyngeal Erythema, TMs Normal Neck: Full Range of Motion, Non-Tender, Normal, Normal Inspection Respiratory: Chest Non-Tender, Lungs Clear, No Accessory Muscle Use, No Respiratory Distress, Normal Breath Sounds Cardiovascular: No Edema, No JVD, No Murmur, No Gallop, Normal Peripheral Pulses, Regular Rate/Rhythm Breast Exam: Deferred Gastrointestinal: No Organomegaly, Non Tender, No Pulsatile Mass, Normal Bowel Sounds, Soft Genitalia: Deferred Pelvic: Deferred Rectal: Deferred Extremities: No calf tenderness, Normal capillary refill, Normal inspection, Normal range of motion, Non-tender, No pedal edema, Other (Negative CVA tenderness) Musculoskeletal : Apperance: Normal Neurologic: Alert, enrollment clerk II-XII nml as Tested, No Motor Deficits, Normal Affect, Normal Mood, No Sensory Deficits Cerebellar Function: Normal Reflexes: Normal Skin: Dry, Normal Color, Warm Lymphatic: No Adenopathy Was a procedure done? Was a procedure done?: No Differential Diagnosis Kidney stone (Female): N/A Urinary Problem (Male): Urethritis Urinary Problem (Female): Urinary retention, Urolithiasis, UTI, Vaginitis X-Ray, Labs, Meds, VS Vital Signs Date Time Temp Pulse Resp B/P (MAP) Pulse Ox O2 Delivery O2 Flow Rate FiO2 05/24/24 20:18 98.9 88 19 109/66 (80) 99 98.9 05/24/24 20:18 88 19 99 05/24/24 19:01 16 100 Room Air* 0 21 05/24/24 18:52 97.8 106 16 102/78 (86) 100 Lab Test 05/24/24 18:47 Range/Units Urine Color Yellow Yellow Urine Clarity Turbid H Clear Urine pH 6.0 5.0-9.0 Urine Specific [place] 1.024 1.001-1.035 Urine Protein Trace H Negative Urine Ketones Trace Negative Urine Blood 2+ H Negative /uL Urine Nitrite Negative Negative Urine Bilirubin Negative Negative Urine Urobilinogen Normal Negative mg/dL Urine Leukocyte Esterase 3+ Negative /uL Urine RBC 5 0 - 4 /hpf Urine WBC 8 0 - 5 /hpf Urine Squamous Epithelial Cells Mod <5 /hpf Urine Bacteria Few H None Seen /hpf Urine Mucus Few None Seen Urine Glucose Normal Normal mg/dL X-Ray, Labs, Meds, VS Comment UA positive for leukocyte esterase, bacteria and WBCs patient with history of chronic UTIs we will script antibiotics advised to rest increase p.o. fluids with electrolytes avoid caffeine follow up with PCP in 2-3 days as necessary ER return precautions given patient indicates understanding agrees with discharge p rolando of care. Time of 1ST Reevaluation: 20:33 Reevaluation 1ST: Improved Patient Education/Counseling: Diagnosis, Treatment, Prognosis, Need For Follow Up Family Education/Counseling: Diagnosis, Treatment, Prognosis, Need For Follow Up Departure 1 Departure Time of Disposition: 20:35 Impression: Primary Impression: Acute UTI (urinary tract infection) Disposition: HOME / SELF CARE / HOMELESS Condition: Stable e-Prescriptions Sulfamethoxazole W/Trimethopri (Bactrim Ds Tablet) 1 Tab Tb 1 TAB PO BID for 5 Days, #10 TAB Prov: NIKKI LOWERY 05/24/24 Discharged With: Relative (Mother) Critical Care Note Critical Care Time?: No Stability Stability form required: NIKKI Maurice May 24, 2024 19:48
[2024-05-24 19:56] LABS: Urine Bacteria FEW /hpf (None Seen); Urine Blood 2+ /uL (Negative); Urine Clarity Turbid (Clear); Urine Color Yellow (Yellow); Urine Mucus FEW (None Seen); Urine Protein, UAD TRACE (Negative); Urine Specific Gravity 1.024 (1.001-1.035); Urine Squamous Epithelial Cell MOD /hpf (<5); Urine Urobilinogen Normal (Negative); Urine WBC 8 /hpf (0 - 5)
[2024-05-24 20:18] VITALS: BP 109/66; PULSE 88; RESP 19; TEMP 98.9; O2SAT 99
[2024-05-24] MEDS ORDERED: BACDST PO (20:34)
== END 2024-05-24 20:49 | disposition home or self-care (01) ==
LOC: ER 17:58
DX: N39.0 Urinary tract infection, site not specified (principal); R05.9 Cough, unspecified; Z90.49 Acquired absence of other specified parts of digestive tract; Z79.1 Long term (current) use of non-steroidal anti-inflammatories (NSAID); Z79.52 Long term (current) use of systemic steroids; Z79.899 Other long term (current) drug therapy
CPT/HCPCS: 81001

== ENCOUNTER 2025-01-16 09:20 | Emergency (ER) | payer MEDICAID ==
[~2025-01-16] VITALS: Ht 172.7 cm; Wt 115.9 kg
[~2025-01-16 09:20] MED LIST changes: +AZIT500T66 PO; +CEPH500T PO; +DEXT1SYP9 GT; +DOCU-94 PO; +HYDR-4072 PO
[2025-01-16 09:54] VITALS: BP 126/73; PULSE 76; RESP 18; TEMP 98.6; O2SAT 96
--- NOTE | 2025-01-16 10:04 | ED.PDOC ---
Eye-HPI HPI Comments A 34 YEAR OLD FEMALE PRESENTS TO THE ED WITH COMPLAINT OF SORE THROAT AND LEFT EAR PAIN. PATIENT STATES SHE HAS BEEN EXPERIENCING A SORE THROAT, NASAL CONGESTION, AND LEFT EAR PAIN FOR THE PAST 3 DAYS. PATIENT DENIES FEVER, CHILLS, SHORTNESS OF BREATH, CHEST PAIN, ABDOMINAL PAIN, NAUSEA, VOMITING, HEADACHE, OR OTHER COMPLAINTS. NO OTHER SYMPTOMS OR MODIFYING FACTORS AT THIS TIME. PATIENT IS ALERT, ORIENTED X 4, AND HAS STEADY GAIT. Chief Complaint: Flu like Time Seen by MD: 09:39 Primary Care Provider: MIKAL Reviewed Notes: Nurses Notes, Medications, Allergies Allergies: Coded Allergies: Acetaminophen (Verified Allergy, Mild, headache, 10/17/24) Hydrocodone (Verified Allergy, Mild, headache, 10/17/24) No Known Drug Allergy (Verified Allergy, Unknown, 08/12/20) Home Meds Active Scripts Ibuprofen (Ibuprofen) 800 Mg Tab, 1 TAB PO TID, #30 TAB Prov:MARCELLE ANDUJAR 01/16/25 Amoxicillin & Pot Clavulanate (AUGMENTIN TABLET) 875 Mg Tb, 875 MG PO BID, #20 TAB Prov:MARCELLE ANDUJAR 01/16/25 Promethazine-Dm (Promethazine Dm 6.25-15 mg/5Ml) 1 Yuliya Yuliya, 5 ML PO TID, #160 ML Prov:MARCELLE ANDUJAR 09/14/24 Prednisone (Prednisone) 20 Mg Tab, 60 MG PO DAILY, #15 TAB Prov:MARCELLE ANDUJAR 09/14/24 Sulfamethoxazole W/Trimethopri (Bactrim Ds Tablet) 1 Tab Tb, 1 TAB PO BID for 10 Days, #20 TAB Prov:MARCELLE ANDUJAR 09/14/24 Acetaminophen (Acetaminophen) 500 Mg Tab, 500 MG PO Q4HP, #30 TAB 0 Refills Prov:ARVIN FONG 08/22/24 Amoxicillin & Pot Clavulanate (Amoxicillin/Potassium Cla) 875 Mg Tab, 1 TAB PO BID for 7 Days, #14 TAB 0 Refills Prov:ARVIN FONG 08/22/24 Dextromethorphan-Guaifenesin (Robitussin-Dm) 10 Ml Sr, 10 ML GT Q6HPRN PRN for 5 Days, #120 SYP Prov:MAICOL CANTOR DO 06/17/24 Azithromycin (Azithromycin) 500 Mg Tab, 250 MG PO DAILY for 5 Days, #5 TAB Prov:MAICOL CANTOR DO 06/17/24 Ondansetron Odt 4MG Tab (ZOFRAN PO) 4 Mg Tb, 4 MG PO Q4HPRN PRN for 7 Days, #35 TAB ODT TAB-DISSOLVE IN MOUTH, THEN SWALLOW Prov:BRENDA CHAVEZ DO 06/14/24 Ibuprofen (Ibuprofen) 800 Mg Tab, 800 MG PO TID PRN for 4 Days, #12 TAB Prov:BRENDA CHAVEZ DO 06/14/24 Hydrocodone-Acetaminophen (Hydrocodone/Acetaminophen 10-325 mg) 1 Tab Tab, 1 TAB PO Q6HPRN PRN for 7 Days, #28 TAB Prov:BRENDA CHAVEZ DO 06/14/24 Docusate Sodium (Colace) 100 Mg Cap, 1 CAP PO BID, #60 CAP 2 Refills Prov:BRENDA CHAVEZ 06/14/24 Cephalexin Monohydrate (Cephalexin) 500 Mg Tab, 1 TAB PO QID for 7 Days, #28 TAB Prov:BRENDA CHAVEZ DO 06/14/24 Acetaminophen (Acetaminophen) 500 Mg Tab, 500 MG PO Q4HP PRN, #30 TAB Prov:JEAN NIETO PAC 04/14/24 Ibuprofen Micronized (Ibuprofen) 800 Mg Tab, 800 MG PO Q8HP PRN, #20 TAB Prov:JEAN NIETO PAC 04/14/24 Acetaminophen W/ Codeine (Tylenol W/Cod #3) 1 Tab Tb, 1 TAB PO Q6HP PRN, #10 TAB Prov:JEAN NIETO PAC 11/25/23 Ibuprofen Micronized (Ibuprofen) 800 Mg Tab, 800 MG PO Q8HP PRN, #20 TAB Prov:JEAN NIETO PAC 11/25/23 Sulfamethoxazole W/Trimethopri (Bactrim Ds Tablet) 1 Tab Tb, 1 TAB PO BID for 5 Days, #10 TAB Prov:JEAN NIETO PAC 11/25/23 Ibuprofen Micronized (Ibuprofen) 800 Mg Tab, 800 MG PO Q8HPRN PRN, #30 TAB Prov:MELISSA CASTILLO DO 08/14/23 Morphine Sulfate (Morphine Sulfate) 15 Mg Tab, 15 MG PO Q6HPRN PRN, #30 TAB Prov:MELISSA CASTILLO DO 08/14/23 Acetaminophen (Acetaminophen) 500 Mg Tab, 500 MG PO Q4HPRN, #30 TAB 0 Refills Prov:ARVIN FONG 08/09/23 Ondansetron Odt 4MG Tab (ZOFRAN PO) 4 Mg Tb, 4 MG PO Q8HPRN, #14 TAB 0 Refills ODT TAB-DISSOLVE IN MOUTH, THEN SWALLOW Prov:ARVIN FONG 08/09/23 Ciprofloxacin Hcl (Ciprofloxacin Hcl) 500 Mg Tab, 1 TAB PO BID for 7 Days, #14 TAB 0 Refills Prov:ARVIN FONG 08/09/23 Sulfamethoxazole W/Trimethopri (Bactrim Ds Tablet) 1 Tab Tb, 1 TAB PO BID for 7 Days, #14 TAB Prov:MARCELLE ANDUJAR 06/24/23 Promethazine-Dm (Promethazine Dm 6.25-15 mg/5Ml) 1 Yuliya Yuliya, 5 ML PO TID, #150 ML Prov:MARCELLE ANDUJAR 06/24/23 Ibuprofen (Ibuprofen) 800 Mg Tab, 1 TAB PO TID, #30 TAB Prov:MARCELLE ANDUJAR 06/24/23 Nitrofurantoin Monohydrate Mac (Macrobid) 100 Mg Cap, 100 MG PO BID for 5 Days, #10 CAP 0 Refills Prov:KARIN PINEDA 01/20/23 Triamcinolone Acetonide (Triamcinolone Acetonide) 0.025 % Cre, 1 APPLIC TOP BID PRN, #30 GRAMS 0 Refills Prov:KARIN PINEDA 01/20/23 Prednisone (Prednisone) 20 Mg Tab, 60 MG PO DAILY, #18 MG Prov:MARCELLE ANDUJAR 11/19/22 Amoxicillin & Pot Clavulanate (AUGMENTIN TABLET) 875 Mg Tb, 875 MG PO BID for 10 Days, #20 TAB Prov:MARCELLE ANDUJAR 11/19/22 Ondansetron (Zofran) 4 Mg Tab, 1 TAB PO Q6HR PRN, #12 TAB 0 Refills Prov:ALIYAH PAYTON 08/03/22 Acetaminophen (Tylenol) 325 Mg Cap, 325 MG PO Q4HPRN PRN, #30 CAP 0 Refills Take 1-2 caps po q4h prn for pain/fever (Do not exceed 3,000mg of acetaminophen in 24 hours) Prov:ALIYAH PAYTON DROP CREW LABORER 08/03/22 Cephalexin ( Keflex 500) 500 Mg Cap, 1 CAP PO QID for 7 Days, #28 CAP 0 Refills Prov:ALIYAH PAYTON CLARA 08/03/22 Prednisone (Prednisone) 20 Mg Tab, 20 MG PO BID for 5 Days, #10 TAB 0 Refills Prov:ARVIN FONG 07/12/22 Acetaminophen (Acetaminophen) 500 Mg Tab, 500 MG PO QIDP, #30 TAB 0 Refills Prov:ARVIN FONG 07/12/22 Amoxicillin & Pot Clavulanate (Amoxicillin/Potassium Cla) 875 Mg Tab, 1 TAB PO BID for 7 Days, #14 TAB 0 Refills Prov:ARVIN FONG 07/12/22 Nitrofurantoin Monohydrate Mac (Macrobid) 100 Mg Cap, 100 MG PO BID for 7 Days, #14 CAP Prov:JONN REBOLLEDO MD 07/18/21 Information Source: Patient Mode of Arrival: Ambulatory Timing: Days Duration: Since onset, Days Prehospital treatment: None Quality: Pain, Red Lids: Normal Conjunctiva: Normal Cornea: Normal Pupils: Normal EOM: Normal Fundus: Normal Slit lamp exam: Normal Anterior chamber: Normal Mouth Location: Pharynx Mouth: Normal ENT Ear Exam: Normal, Red, Bulging, Normal Nose: Normal Sinuses: Normal Oropharynx: Tonsillar hypertrophy, Red Onset: Spontaneous Throat Exposed to: None History of: None Last Tetanus: Unknown Modifying factors: Nothing Associated signs and symptoms: Nasal Symptoms, Sore Throat, Ear Pain Past Medical History PAST MEDICAL HISTORY: Denies Surgical History: Cholecystectomy 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 Family History Family History: Reviewed,noncontributory to illness Social History Smoker: Non-Smoker Alcohol: Denies ETOH Use Drugs: Denies Drug Use Lives In: Home Constitutional: denies: chills, diaphoresis, fatigue, fever, malaise, sweats, weakness, others EENTM: reports: ear pain, nose congestion, throat pain, throat swelling; denies: blurred vision, double vision, ear bleeding, ear discharge, ear drainage, ear ringing, eye pain, eye redness, hearing loss, mouth pain, mouth swelling, nasal discharge, nose bleeding, nose pain, photophobia, tearing, voice changes, others Respiratory: denies: cough, hemoptysis, orthopnea, SOB at rest, shortness of breath, SOB with excertion, stridor, wheezing, others Cardiovascular: denies: chest pain, dizzy spells, diaphoresis, Dyspnea on exertion, edema, irregular heart beat, left arm pain, lightheadedness, pal pitations, PND, syncope, others Gastrointestinal: denies: abdomen distended, abdominal pain, blood streaked bowels, constipated, diarrhea, dysphagia, difficulty swallowing, hematemesis, melena, nausea, poor appetite, poor fluid intake, rectal bleeding, rectal pain, vomiting, others Genitourinary: denies: abnormal vagina bleeding, burning, dyspareunia, dysuria, flank pain, frequency, hematuria, incontinence, pain, , vagina discharge, urgency, others Neurological: denies: dizziness, fainting, headache, left sided numbness, left sided weakness, numbness, paresthesia, pre-existing deficit, right sided numbness, right sided weakness, seizure, speech problems, tingling, tremors, weakness, others Musculoskeletal: denies: back pain, gout, joint pain, joint swelling, muscle pain, muscle stiffness, neck pain, others Integumetry: denies: bruises, change in color, change in hair/nails, dryness, laceration, lesions, lumps, rash, wounds, others Allergic/Immunocompromised: denies: Difficulty Healing, Frequent Infections, Hives, Itching, others Hematologic/Lymphatic: denies: anemia, blood clots, easy bleeding, easy b ruising, swollen glands, others Endocrine: denies: excessive hunger, excessive sweating, excessive thirst, excessive urination, flushing, intolerance to cold, intolerance to heat, unexplained weight gain, unexplained weight loss, others Psychiatric: denies: anxiety, bipolar disorder, depression, hopeless, panic disorder, schizophrenia, sleepless, suicidal, others All Other Systems: Reviewed and Negative Physical Exam General Appearance: Obese HEENT: PERRL/EOMI, Pharyngeal Erythema (TONSILLAR SWELLING, NO EXUDATES. ), TM Abnormal (L) (ERYTHEMA AND DULL WITH MILD EFFUSION OF LEFT TM. ) Neck: Full Range of Motion, Non-Tender, Normal, Normal Inspection Respiratory: Chest Non-Tender, Lungs Clear, No Accessory Muscle Use, No R espiratory Distress, Normal Breath Sounds Cardiovascular: No Edema, No JVD, No Murmur, No Gallop, Normal Peripheral Pulses, Regular Rate/Rhythm Breast Exam: Deferred Gastrointestinal: No Organomegaly, Non Tender, No Pulsatile Mass, Normal Bowel Sounds, Soft Genitalia: Deferred Pelvic: Deferred Rectal: Deferred Extremities: No calf tenderness, Normal capillary refill, Normal inspection, Normal range of motion, Non-tender, No pedal edema Musculoskeletal : Apperance: Normal Neurologic: Alert, metal fitter II-XII nml as Tested, No Motor Deficits, Normal Affect, Normal Mood, No Sensory Deficits Cerebellar Function: Normal Reflexes: Normal Skin: Dry, Normal Color, Warm Peripheral Pulses: 2+ carotid (R), 2+ carotid (L) Lymphatic: No Adenopathy Was a procedure done? Was a procedure done?: No EENT DIFF Eye: N/A Ear: Cerumen Impaction, Otitis Externa, Otitis Media, Pharyngitis, Sinusitis Nose: N/A Mouth: N/A Sore Throat: Pharyngitis, Streptococcal, Viral Pharyngitis, URI X-Ray, Labs, Meds, VS Vital Signs Date Time Temp Pulse Resp B/P (MAP) Pulse Ox O2 Delivery O2 Flow Rate FiO2 01/16/25 09:54 98.6 76 18 126/73 (90) 96 98.6 01/16/25 09:54 76 18 96 Room Air 01/16/25 09:26 98.6 76 18 126/73 76 98.6 X-Ray, Labs, Meds, VS Comment EXTERNAL MEDICAL RECORDS REVIEWED: [NONE] INDEPENDENT HISTORIANS: [NONE] SOCIAL DETERMINANTS OF HEALTH: [NONE] LABS ORDERED: NONE REVIEWED AND INTERPRETED RESULTS: NONE IMAGING ORDERED: NONE TREATMENTS ORDERED: NNE PROCEDURES PERFORMED: NONE CRITICAL CARE TIME: NONE I HAVE DISCUSSED THE PATIENT WITH THE ATTENDING PHYSICIAN DR. HURST AND HE AGREES WITH THE PATIENT'S PLAN OF CARE AND DISPOSITION. BASED ON HISTORY OF PRESENT ILLNESS, AND PHYSICAL EXAM, PATIENT WILL BE DISCHARGED HOME. DISCUSSED PLAN FOR DISCHARGE HOME WITH RX [AUGMENTIN AND MOTRIN 800 MG]. MEDICATION WARNINGS GIVEN. SHARED DECISION MAKING: PATIENT INSTRUCTED TO FOLLOW UP WITH PRIMARY CARE PROVIDER IN 1-2 DAYS FOR RE-EVALUATION OF SYMPTOMS. PATIENT VERBALIZES UNDERSTANDING TO RETURN TO ED FOR NEW OR WORSENING SYMPTOMS OR IF FOLLOW UP WITH PCP CANNOT BE OBTAINED. PATIENT FEELS COMFORTABLE GOING HOME AT THIS TIME. ALL QUESTIONS ADDRESSED AT TIME OF DISCHARGE. Time of 1ST Reevaluation: 10:11 Reevaluation 1ST: Improved Patient Education/Counseling: Diagnosis, Treatment, Need For Follow Up Family Education/Counseling: Diagnosis, Treatment, Need For Follow Up Medical Screening: No EMC Exist At This Time SEPSIS Sepsis Screen Date sepsis recognized/suspect: Jan 16, 2025 Time Sepsis recognized/suspect: 927 Recent Procedure: No On Antibiotic Therapy: No Respiratory Rate >20: No Heart Rate >90: No Temp<36 C (96.8 F) or >38.3 C: No SBP <90 or MAP <65 mmHG: No New Acute Mental Status Change: No Is the patient on CPAP, BIPAP,: No Vital Signs Date Time Temp Pulse Resp B/P (MAP) Pulse Ox O2 Delivery O2 Flow Rate FiO2 01/16/25 09:54 98.6 76 18 126/73 (90) 96 98.6 01/16/25 09:54 76 18 96 Room Air 01/16/25 09:26 98.6 76 18 126/73 76 98.6 Departure 1 Departure Time of Disposition: 10:11 Impression: Primary Impression: Acute tonsillitis Qualified Codes: J03.90 - Acute tonsillitis, unspecified Additional Impression: Otitis media of left ear Qualified Codes: H65.192 - Other acute nonsuppurative otitis media, left ear Disposition: HOME / SELF CARE / HOMELESS Condition: Stable Additional Instructions: FOLLOW-UP WITH PCP IN 1 TO 2 DAYS. TAKE MEDICATIONS PRESCRIBED. RETURN TO ED FOR ANY NEW OR WORSENING SYMPTOMS. e-Prescriptions Ibuprofen (Ibuprofen) 800 Mg Tab 1 TAB PO TID, #30 TAB Prov: MARCELLE ANDUJAR 01/16/25 Amoxicillin & Pot Clavulanate (AUGMENTIN TABLET) 875 Mg Tb 875 MG PO BID, #20 TAB Prov: MARCELLE ANDUJAR 01/16/25 Discharged With: Self Critical Care Note Critical Care Time?: No Stability Stability form required: No I personally scribed for MARCELLE ANDUJAR ([email or web address]) on 01/16/25 at 10:04. Electronically submitted by Alfie Bond ([email or web address]). MARCELLE ANDUJAR Jan 16, 2025 10:04
== END 2025-01-16 10:17 | disposition home or self-care (01) ==
LOC: ER 09:20
DX: J03.90 Acute tonsillitis, unspecified (principal); H66.92 Otitis media, unspecified, left ear; Z90.49 Acquired absence of other specified parts of digestive tract; Z79.1 Long term (current) use of non-steroidal anti-inflammatories (NSAID); Z79.52 Long term (current) use of systemic steroids; Z88.5 Allergy status to narcotic agent; Z79.899 Other long term (current) drug therapy

== ENCOUNTER 2025-02-06 07:48 | Emergency (ER) | payer MEDICAID ==
[~2025-02-06] VITALS: Ht 172.7 cm; Wt 116.4 kg
[2025-02-06 08:18] VITALS: BP 105/63; PULSE 82; RESP 18; TEMP 97.8; O2SAT 99
--- NOTE | 2025-02-06 08:26 | ED.PDOC ---
SOB-HPI HPI Comments A 34 YEAR OLD FEMALE PRESENTS TO THE ED WITH COMPLAINT OF COUGH. PATIENT REPORTS ON RECENTLY BEING IN THE ER 2 WEEKS AGO FOR SIMILAR SYMPTOMS AND WAS GIVEN ANTIBIOTICS FOR WHICH SHE HAS FINISHED 2 DAYS AGO AND IS NOT FEELING BETTER. PATIENT CURRENTLY HAS SYMPTOMS OF SHAKING,SINUS CONGESTION, EAR PAIN, AND COUGH. PATIENT DENIES FEVER, CHILLS, SHORTNESS OF BREATH, CHEST PAIN, ABDOMINAL PAIN, NAUSEA, VOMITING, HEADACHE, OR OTHER COMPLAINTS. NO OTHER SY MPTOMS OR MODIFYING FACTORS AT THIS TIME. PATIENT IS ALERT, ORIENTED X 4, AND HAS STEADY GAIT. Chief Complaint: Cough Time Seen by MD: 08:00 Primary Care Provider: MIKAL Reviewed notes: Nurses Notes, Medications (HE 1 THEM IS A ), Allergies Information Source: Patient Mode of Arrival: Ambulatory Severity: Moderate Timing: Weeks Duration: Since onset Context: Spontaneous Onset PE Risk Factors: None History of: Anxiety Prehospital treatment: None Associated Signs and Symptoms: Cough, Nasal Congestion, Anxiety If cough with SOB: Productive Past Medical History PAST MEDICAL HISTORY: Anxiety Surgical History: Cholecystectomy HR REPRESENTATIVE History: Denies all HR REPRESENTATIVE Hx Family History Family History: Reviewed,noncontributory to illness, Unknown Social History Smoker: Non-Smoker Alcohol: Denies ETOH Use Drugs: Denies Drug Use Lives In: Home Constitutional: reports: others (ANXIOUS ); denies: chills, diaphoresis, fatigue, fever, malaise, sweats, weakness EENTM: reports: ear pain, nose congestion, others (SINUSES CONGESTION ); denies: blurred vision, double vision, ear bleeding, ear discharge, ear drainage, ear ringing, eye pain, eye redness, hearing loss, mouth pain, mouth swelling, nasal discharge, nose bleeding, nose pain, photophobia, tearing, throat pain, throat swelling, voice changes Respiratory: reports: cough (OFF); denies: hemoptysis, orthopnea, SOB at rest, shortness of breath, SOB with excertion, stridor, wheezing, others Cardiovascular: denies: chest pain, dizzy spells, diaphoresis, Dyspnea on exertion, edema, irregular heart beat, left arm pain, lightheadedness, palpitations, PND, syncope, others Gastrointestinal: denies: abdomen distended, abdominal pain, blood streaked bowels, constipated, diarrhea, dysphagia, difficulty swallowing, hematemesis, melena, nausea, poor appetite, poor fluid intake, rectal bleeding, rectal pain, vomiting, others Genitourinary: denies: abnormal vagina bleeding, burning, dyspareunia, dysuria, flank pain, frequency, hematuria, incontinence, pain, , vagina discharge, urgency, others Neurological: denies: dizziness, fainting, headache, left sided numbness, left sided weakness, numbness, paresthesia, pre-existing deficit, right sided numbness, right sided weakness, seizure, speech problems, tingling, tremors, weakness, others Musculoskeletal: denies: back pain, gout, joint pain, joint swelling, muscle pain, muscle stiffness, neck pain, others Integumetry: denies: bruises, change in color, change in hair/nails, dryness, laceration, lesions, lumps, rash, wounds, others Allergic/Immunocompromised: denies: Difficulty Healing, Frequent Infections, Hives, Itching, others Hematologic/Lymphatic: denies: anemia, blood clots, easy bleeding, easy bruising, swollen glands, others Endocrine: denies: excessive hunger, excessive sweating, excessive thirst, excessive urination, flushing, intolerance to cold, intolerance to heat, unexplained weight gain, unexplained weight loss, others Psychiatric: denies: anxiety, bipolar disorder, depression, hopeless, panic disorder, schizophrenia, sleepless, suicidal, others All Other Systems: Reviewed and Negative Physical Exam General Appearance: No Apparent Distress, Obese, Other (ANXIOUS ) HEENT: Normal ENT Inspection, PERRL/EOMI, Pharynx Normal, Sinuses (TENDERNESS LEFT MAXILLARY WITH POST NASAL DRIP, NO YELLOW DISCHARGE. ), TM Abnormal (L) (DULL WITH MILD EFFUSION, NO REDNESS AND BLEEDING. ) Neck: Full Range of Motion, Non-Tender, Normal, Normal Inspection Respiratory: Chest Non-Tender, Lungs Clear, No Accessory Muscle Use, No Respiratory Distress, Normal Breath Sounds Cardiovascular: No Edema, No JVD, No Murmur, No Gallop, Normal Peripheral Pu lses, Regular Rate/Rhythm Breast Exam: Deferred Gastrointestinal: No Organomegaly, Non Tender, No Pulsatile Mass, Normal Bowel Sounds, Soft Genitalia: Deferred Pelvic: Deferred Rectal: Deferred Extremities: No calf tenderness, Normal capillary refill, Normal inspection, Normal range of motion, Non-tender, No pedal edema Musculoskeletal : Apperance: Normal Neurologic: Alert, pharmacist aide II-XII nml as Tested, No Motor Deficits, Normal Affect, Normal Mood, No Sensory Deficits Cerebellar Function: Normal Reflexes: Normal Skin: Dry, Normal Color, Warm Peripheral Pulses: 2+ carotid (R), 2+ carotid (L) Lymphatic: No Adenopathy Was a procedure done? Was a procedure done?: No Differential Dx Differential Diagnosis: Bronchitis, Sinusitis, Otitis Media, Pharyngitis, URI X-Ray, Labs, Meds, VS Vital Signs Date Time Temp Pulse Resp B/P (MAP) Pulse Ox O2 Delivery O2 Flow Rate FiO2 02/06/25 08:18 97.8 82 18 105/63 (77) 100 97.8 02/06/25 08:18 82 18 99 Room Air 02/06/25 07:52 97.0 86 20 109/61 97 97.0 X-Ray, Labs, Meds, VS Comment EXTERNAL MEDICAL RECORDS REVIEWED: [NONE] INDEPENDENT HISTORIANS: [NONE] SOCIAL DETERMINANTS OF HEALTH: [NONE] LABS ORDERED: NONE REVIEWED AND INTERPRETED RESULTS: NONE IMAGING ORDERED: NONE TREATMENTS ORDERED:NO PROCEDURES PERFORMED: NONE CRITICAL CARE TIME: NONE I HAVE DISCUSSED THE PATIENT WITH THE ATTENDING PHYSICIAN DR. HERNANDEZ AND HE AGREES WITH THE PATIENT'S PLAN OF CARE AND DISPOSITION. BASED ON HISTORY OF PRESENT ILLNESS, AND PHYSICAL EXAM, PATIENT WILL BE DISCHARGED HOME. DISCUSSED PLAN FOR DISCHARGE HOME WITH RX [PREDNISONE AND PHENERGAN DM ]. MEDICATION WARNINGS GIVEN. SHARED DECISION MAKING: DISCUSSED WITH PATIENT THAT THEIR WORKUP WAS NORMAL. PATIENT INSTRUCTED TO FOLLOW UP WITH PRIMARY CARE PROVIDER IN 1-2 DAYS FOR RE- EVALUATION OF SYMPTOMS. PATIENT VERBALIZES UNDERSTANDING TO RETURN TO ED FOR NEW OR WORSENING SYMPTOMS OR IF FOLLOW UP WITH PCP CANNOT BE OBTAINED. PATIENT FEELS COMFORTABLE GOING HOME AT THIS TIME. ALL QUESTIONS ADDRESSED AT TIME OF DISCHARGE. FOR THE 34-YEAR-OLD FEMALE WHEN HE GOING TO GIVE HER Time of 1ST Reevaluation: 09:00 Reevaluation 1ST: Improved Patient Education/Counseling: Diagnosis, Treatment, Need For Follow Up Family Education/Counseling: Diagnosis, Treatment, Need For Follow Up Medical Screening: No EMC Exist At This Time SEPSIS Sepsis Screen Date sepsis recognized/suspect: Feb 06, 2025 Time Sepsis recognized/suspect: 0755 Recent Procedure: No On Antibiotic Therapy: No Respiratory Rate >20: No Heart Rate >90: No Temp<36 C (96.8 F) or >38.3 C: No SBP <90 or MAP <65 mmHG: No New Acute Mental Status Change: No Is the patient on CPAP, BIPAP,: No Vital Signs Date Time Temp Pulse Resp B/P (MAP) Pulse Ox O2 Delivery O2 Flow Rate FiO2 02/06/25 08:18 97.8 82 18 105/63 (77) 100 97.8 02/06/25 08:18 82 18 99 Room Air 02/06/25 07:52 97.0 86 20 109/61 97 97.0 Departure 1 Departure Time of Disposition: 09:00 Impression: Primary Impression: Sinus congestion Additional Impression: Upper respiratory infection Qualified Codes: J06.9 - Acute upper respiratory infection, unspecified Disposition: HOME / SELF CARE / HOMELESS Condition: Stable Additional Instructions: FOLLOW-UP WITH PCP IN 1 TO 2 DAYS. TAKE MEDICATIONS PRESCRIBED. RETURN TO ED FOR ANY NEW OR WORSENING SYMPTOMS. e-Prescriptions Promethazine-Dm (Promethazine Dm 6.25-15 mg/5Ml) 1 Yuliya Yuliya 5 ML PO TID, #160 ML Prov: MARCELLE ANDUJAR 02/06/25 Prednisone (Prednisone) 20 Mg Tab 60 MG PO DAILY, #15 TAB Prov: MARCELLE ANDUJAR 02/06/25 Discharged With: Self Critical Care Note Critical Care Time?: No Stability Stability form required: No Heart Score Heart Score: Heart Score Response (Comments) Value History N/A 0 EKG N/A 0 Age N/A 0 Risk Factors N/A 0 Troponin N/A 0 Total 0 I personally scribed for MARCELLE ANDUJAR ([email or web address]) on 02/06/25 at 08:26. Electronically submitted by Dominick Walker ([email or web address]). MARCELLE ANDUJAR Feb 06, 2025 08:26
== END 2025-02-06 08:56 | disposition home or self-care (01) ==
LOC: ER 07:52
DX: J06.9 Acute upper respiratory infection, unspecified (principal); R09.81 Nasal congestion; F41.9 Anxiety disorder, unspecified; Z90.49 Acquired absence of other specified parts of digestive tract